=== PATIENT | female | born 1990 | race Caucasian/White ===

== ENCOUNTER 2021-07-29 12:51 | Emergency (ER) | payer OTHER ==
[~2021-07-29] VITALS: Ht 162.6 cm; Wt 89.4 kg
[2021-07-29] MEDS ORDERED: HYDROCODON-ACE1 EAC7 PO (17:06)
[2021-07-29] MEDS ORDERED: DOXYCYCLINE 10100 M2 PO (17:06)
[2021-07-29 17:13] VITALS: BP 150/78
== END 2021-07-29 17:14 | disposition home or self-care (01) ==
LOC: M.ERS 12:51
DX: N76.2 Acute vulvitis (principal); Z98.51 Tubal ligation status; Z90.49 Acquired absence of other specified parts of digestive tract; Z88.5 Allergy status to narcotic agent; Z88.2 Allergy status to sulfonamides

== ENCOUNTER → 2021-09-02 | Outpatient (CLI) | payer OTHER ==
[~2021-09-02] MED LIST: DOXYCYCLINE 10100 M2 PO; HYDROCODON-ACE1 EAC7 PO
== END ==
LOC: M.MRI 11:01
PROVIDERS: ATTEND Family Medicine
DX: G89.29 Other chronic pain (principal); R51.9 Headache, unspecified; R42 Dizziness and giddiness; M54.6 Pain in thoracic spine; M54.42 Lumbago with sciatica, left side

== ENCOUNTER → 2021-09-03 | Outpatient (CLI) | payer OTHER | LOC: M.MRI 08-27 08:31 | PROVIDERS: ATTEND Family Medicine | DX: M47.817 Spondylosis without myelopathy or radiculopathy, lumbosacral region (principal); M47.816 Spondylosis without myelopathy or radiculopathy, lumbar region; R51.9 Headache, unspecified; R42 Dizziness and giddiness; M54.6 Pain in thoracic spine; G89.29 Other chronic pain ==